=== PATIENT | female | born 1980 | race Caucasian/White ===

== ENCOUNTER 2016-11-08 13:52 | Emergency (ER) | payer OTHER ==
[~2016-11-08] VITALS: Ht 180.3 cm; Wt 135.7 kg
[~2016-11-08 13:52] MED LIST: AMBIEN10 MG PO; CELEBREX200 MG PO; CINNAMON500 MG PO; CLONAZEPAM0.5 MG PO; EPITOL200 MG PO; FLEXERIL5 MG PO; HUMALOG100 UNIT/1 SC; LEVEMIR FL100 UNITS/ SC; LEVEMIR100 UNIT/2 SC; LISINOPRIL20 MG PO; NOVOLOG PE100 UNITS/; ONE-A-DAY ESSE1 EAC1 PO; PAMELOR75 MG PO; PROAIR HFA8.5 GM IH; SERTRALINE HCL100 MG PO; TEGRETOL200 MG PO; TYLENOL WITH C1 EACH PO; WARFARIN SODIUM1 MG PO
[2016-11-08 15:24] LABS: EOSINOPHIL (%) 1.9 % (0-5); EOSINOPHIL COUNT 0.2 K/uL (0-0.3); HEMATOCRIT 35.5 % (36.0-46.0); IMMATURE GRANULOCYTE (%) 0.2 % (0.0-0.7); INSTRUMENT ABS NEUTROPHIL CT 5.2 K/uL; LYMPHOCYTE COUNT 2.4 K/uL (1.0-2.8); MCH 29.5 PG (29.0-34.0); MCHC 33.5 G/DL (30.0-36.0); MCV 87.9 FL (83-99); MEAN PLAT.VOLUME 8.6 uM^3 (9.5-12.4); MONOCYTE (%) 6.2 % (3-12); MONOCYTE COUNT 0.5 K/uL (0-0.8); NEUTROPHIL (%) 62.6 % (45-76); NEUTROPHIL COUNT 5.2 K/uL (1.8-6.4); PLATELET COUNT 362 K/uL (156-360); RBC DIS.WIDTH-CV 12.3 % (11.8-14.6); RBC DIS.WIDTH-SD 39.8 % (39-53); RED BLOOD COUNT 4.04 M/uL (3.80-5.20); WHITE BLOOD COUNT 8.2 K/uL (4.1-10.2)
[2016-11-08 15:33] LABS: CHLORIDE 105 mEq/L (99-109); POTASSIUM 4.2 mEq/L (3.7-5.4); SODIUM 138 mEq/L (136-147)
[2016-11-08 15:35] LABS: GLUCOSE 148 mg/dL (70-99)
[2016-11-08 15:36] LABS: ANION GAP 12 MEQ/L (2-14)
[2016-11-08 15:38] LABS: GFR ESTIMATE (CALCULATED) > 59 mL/min/
[2016-11-08 15:39] LABS: UREA NITROGEN (BUN) 9 mg/dL (9-23)
[2016-11-08 15:45] VITALS: BP 127/86
[2016-11-08 15:47] LABS: QUANTITATIVE HCG < 4.0 MIU/ML
[2016-11-08] MEDS ORDERED: VIBRAMYCIN100 MG PO (16:30)
[2016-11-08] MEDS ORDERED: ULTRACET1 TABLET PO (16:31)
[2016-11-08 16:46] LABS: INTER. NORMALIZED RATIO 1.6; PROTHROMBIN TIME 17.4 SEC (10.2-12.9)
== END 2016-11-08 17:33 | disposition home or self-care (01) ==
LOC: EME 13:52
PROVIDERS: Nurse Practitioner Family
DX: E11.622 Type 2 diabetes mellitus with other skin ulcer (principal); E11.65 Type 2 diabetes mellitus with hyperglycemia; J45.909 Unspecified asthma, uncomplicated; I10 Essential (primary) hypertension; E11.40 Type 2 diabetes mellitus with diabetic neuropathy, unspecified; Z79.01 Long term (current) use of anticoagulants; Z86.718 Personal history of other venous thrombosis and embolism; Z86.711 Personal history of pulmonary embolism; Z79.4 Long term (current) use of insulin
CPT/HCPCS: 73590; 80048; 83605; 84702; 85025; 85610; 87070; 87075; 87186; 87205; 99281; 99284

== ENCOUNTER 2016-12-20 13:53 | Emergency (ER) | payer OTHER ==
[~2016-12-20] VITALS: Ht 180.3 cm; Wt 136.4 kg
[~2016-12-20 13:53] MED LIST changes: +ULTRACET1 TABLET PO; +VIBRAMYCIN100 MG PO
[2016-12-20 20:00] LABS: HEMATOCRIT 34.6 % (36.0-46.0); MCHC 33.8 G/DL (30.0-36.0); MCV 88.7 FL (83-99); MEAN PLAT.VOLUME 8.9 uM^3 (9.5-12.4); PLATELET COUNT 379 K/uL (156-360); RBC DIS.WIDTH-SD 38.5 % (39-53); WHITE BLOOD COUNT 7.4 K/uL (4.1-10.2)
[2016-12-20 20:06] LABS: CHLORIDE 101 mEq/L (99-109); SODIUM 135 mEq/L (136-147)
[2016-12-20 20:08] LABS: GLUCOSE 131 mg/dL (70-99)
[2016-12-20 20:10] LABS: ANION GAP 8 MEQ/L (2-14); TOTAL BILIRUBIN 0.3 mg/dL (0.0-1.0)
[2016-12-20 20:12] LABS: ALKALINE PHOSPHATASE 91 IU/L (3-129); GFR ESTIMATE (CALCULATED) > 59 mL/min/
[2016-12-20 20:13] LABS: UREA NITROGEN (BUN) 8 mg/dL (9-23)
[2016-12-20] MEDS ORDERED: ULTRACET1 TABLET PO (20:37)
[2016-12-20 20:38] LABS: QUANTITATIVE HCG < 4.0 MIU/ML
[2016-12-20 21:14] VITALS: BP 132/67
== END 2016-12-20 21:15 | disposition home or self-care (01) ==
LOC: EME 13:53
PROVIDERS: Nurse Practitioner Family
DX: E11.622 Type 2 diabetes mellitus with other skin ulcer (principal); L97.919 Non-pressure chronic ulcer of unspecified part of right lower leg with unspecified severity; D75.1 Secondary polycythemia; D64.9 Anemia, unspecified; Z86.718 Personal history of other venous thrombosis and embolism; Z79.01 Long term (current) use of anticoagulants; Z79.4 Long term (current) use of insulin; I10 Essential (primary) hypertension; J45.909 Unspecified asthma, uncomplicated; F32.9 Major depressive disorder, single episode, unspecified; F41.9 Anxiety disorder, unspecified; Z86.711 Personal history of pulmonary embolism; Z88.8 Allergy status to other drugs, medicaments and biological substances
CPT/HCPCS: 80053; 83605; 84702; 85027; 87040; 87070; 87075; 87205; 93926; 93971; 99281; 99284